=== PATIENT | male | born 1970 | race Caucasian/White ===

== ENCOUNTER 2018-10-03 11:33 | Emergency (ER) | payer OTHER ==
[2018-10-03] MEDS ORDERED: KETOROLAC 30 MG/ML 1 ML VIAL IVP STA (12:10)
--- NOTE | 2018-10-03 12:12 | ED ---
Abdominal Pain HPI - General Chief Complaint: Abdominal Pain Stated Complaint: TESTICULAR PAIN Time Seen by Provider: 10/03/18 11:54 Source: patient Mode of arrival: ambulatory Limitations: no limitations - History of Present Illness Initial Comments: 89 year old male presenting with right testicular pain that began on Friday after he was coughing. He states since then it has been constant, worsening and with bearing down, not alleviated by anything. He states today he began to have testicular swelling. He admits to hematuria as well. He denies any concern for STI. He admits to subjective fevers and chills which is attributed to an upper respiratory infection that he started taking Augmentin for. - Related Data Home Medications Medication Instructions Recorded Confirmed Amoxic-Pot Clav 875-125Mg 1 tab PO Q12HR 10/03/18 10/03/18 [Augmentin 875-125] Ibuprofen [Motrin Ib] 400 mg PO Q6H PRN 10/03/18 10/03/18 Previous Rx's Medication Instructions Recorded HYDROcodone/APAP 5-325MG [[place] 1 tab PO Q4HR PRN 3 Days #18 tab 10/03/18 5-325] Ibuprofen 600 mg PO Q8HR PRN #30 tablet 10/03/18 Sulfamethox-Tmp 800-160Mg [Bactrim 1 tab PO Q12HR 14 Days #28 tab 10/03/18 DS 800-160 mg] Allergies Allergy/AdvReac Type Severity Reaction Status Date / Time azithromycin [From Zithromax] Allergy Rash/Hives Verified 10/03/18 12:52 Review of Systems ROS Statement: Those systems with pertinent positive or pertinent negative responses have been documented in the HPI. Review of Systems Constitutional: Denies fever, chills Eyes: Denies change in vision, Denies pain Ears, nose, mouth, throat: Denies headaches, Denies sore throat Cardiovascular: Denies chest pain. Denies palpitations Respiratory: Denies shortness of breath, Denies cough Gastrointestinal: Denies abdominal pain. Denies nausea, vomiting, diarrhea. Genitourinary: Denies hematuria, Denies infections Musculoskeletal: Denies pain, Denies swelling Integumentary: Denies rash Neurological: Denies headache, focal weakness, focal numbness Psychiatric: Denies anxiety, Denies depression Hematologic/Lymphatic: Denies easy bleeding or bruising ROS Other: All systems not noted in ROS Statement are negative. Past Medical History Past Medical History: No Reported History History of Any Multi-Drug Resistant Organisms: None Reported Past Surgical History: Adenoidectomy, Hernia Repair, Tonsillectomy Past Psychological History: No Psychological Hx Reported Smoking Status: Current every day smoker Past Alcohol Use History: Occasional Past Drug Use History: Marijuana General Exam - General Exam Comments Initial Comments: General: Awake, alert, No acute Distress HENT: Normocephalic. Atraumatic Eyes: PERRL. EOMI. No scleral icterus. No injected conjunctiva Neck: Full ROM Chest/Lungs: Clear to auscultation bilaterally. No wheezing, rhonchi, or rales Cardiac: Regular rate, rhythm. No murmurs or rubs Abdomen/GI: Soft, nontender, nondistended. No rebound, guarding, or rigidity. Musculoskeletal: Full ROM : Right testicular swelling and erythema with tenderness to palpation. Able to test for inguinal hernia secondary to pain. Testicle no swelling, no erythema, no masses Skin: Warm, dry, intact Neurologic: A/Ox3, no weakness, no sensory deficit, no abnormal gait, no coordination deficit Limitations: no limitations Course Vital Signs 10/03/18 10/03/18 11:48 14:42 Temperature 98.4 F 97.8 F Pulse Rate 118 H 92 Respiratory 20 18 Rate Blood Pressure 136/86 125/87 O2 Sat by Pulse 96 98 Oximetry Medical Decision Making - Medical Decision Making 47 yoM presenting with testicular pain and swelling. On initial exam the patient is awake, alert, and in NAD. He is tachycardic but vital signs are otherwise stable. He has a red swollen right testicle that is tender. Laboratory workup revealed a marked leukocytosis but a negative lactate. UA showed WBC and RBCs. US showed probable bilateral epididymitis and a moderate right-sided hydrocele. Urine and blood cultures were sent as well as gonorrhea and chlamydia PCR's. He was given Rocephin in the department. Patient's HR improved after pain management. His CXR was negative for PNA. Patient was instructed to stop taking Augmentin as his URI symptoms were likely due to a virus. I spoke with Dr. Velez who states the patient can be discharge home on Levaquin or Bactrim and follow up in his office. While the patient has SIRS criteria at this time he is nontoxic appearing, able to tolerate PO, and his pain is under control. Patient was given Bactrim as he does not have insurance and Levaquin is expensive. He is safe for outpatient management. No further emergent workup indicated. The patient was given return to ED instructions. They were instructed to follow up with their primary care provider. Stable for discharge at this time. - Lab Data Result diagrams: 10/03/18 12:34 10/03/18 12:30 Lab Results 10/03/18 10/03/18 10/03/18 Range/Units 12:30 12:30 12:34 WBC 20.5 H (3.8-10.6) k/uL RBC 5.54 (4.30-5.90) m/uL Hgb 15.8 (13.0-17.5) gm/dL Hct 46.9 (39.0-53.0) % MCV 84.8 (80.0-100.0) fL MCH 28.4 (25.0-35.0) pg MCHC 33.6 (31.0-37.0) g/dL RDW 13.6 (11.5-15.5) % Plt Count 301 (150-450) k/uL Neutrophils % 78 % Lymphocytes % 14 % Monocytes % 5 % Eosinophils % 2 % Basophils % 0 % Neutrophils # 15.9 H (1.3-7.7) k/uL Lymphocytes # 2.8 (1.0-4.8) k/uL Monocytes # 1.1 H (0-1.0) k/uL Eosinophils # 0.4 (0-0.7) k/uL Basophils # 0.1 (0-0.2) k/uL Sodium 140 (137-145) mmol/L Potassium 4.7 (3.5-5.1) mmol/L Chloride 105 (98-107) mmol/L Carbon Dioxide 25 (22-30) mmol/L Anion Gap 10 mmol/L BUN 12 (9-20) mg/dL Creatinine 0.75 (0.66-1.25) mg/dL Est GFR (CKD-EPI)AfAm >90 (>60 ml/min/1.73 sqM) Est GFR (CKD-EPI)NonAf >90 (>60 ml/min/1.73 sqM) Glucose 88 (74-99) mg/dL Plasma Lactic Acid [place] (0.7-2.0) mmol/L Calcium 10.0 (8.4-10.2) mg/dL Urine Color Yellow Urine Appearance Clear (Clear) Urine pH 6.5 (5.0-8.0) Ur Specific [place] 1.023 (1.001-1.035) Urine Protein Trace H (Negative) Urine Glucose (UA) Negative (Negative) Urine Ketones Negative (Negative) Urine Blood Small H (Negative) Urine Nitrite Negative (Negative) Urine Bilirubin Negative (Negative) Urine Urobilinogen <2.0 (<2.0) mg/dL Ur Leukocyte Esterase Moderate H (Negative) Urine RBC 32 H (0-5) /hpf Urine WBC 43 H (0-5) /hpf Ur Squamous Epith Cells <1 (0-4) /hpf Urine Mucus Rare H (None) /hpf 10/03/18 Range/Units 13:02 WBC (3.8-10.6) k/uL RBC (4.30-5.90) m/uL Hgb (13.0-17.5) gm/dL Hct (39.0-53.0) % MCV (80.0-100.0) fL MCH (25.0-35.0) pg MCHC (31.0-37.0) g/dL RDW (11.5-15.5) % Plt Count (150-450) k/uL Neutrophils % % Lymphocytes % % Monocytes % % Eosinophils % % Basophils % % Neutrophils # (1.3-7.7) k/uL Lymphocytes # (1.0-4.8) k/uL Monocytes # (0-1.0) k/uL Eosinophils # (0-0.7) k/uL Basophils # (0-0.2) k/uL Sodium (137-145) mmol/L Potassium (3.5-5.1) mmol/L Chloride (98-107) mmol/L Carbon Dioxide (22-30) mmol/L Anion Gap mmol/L BUN (9-20) mg/dL Creatinine (0.66-1.25) mg/dL Est GFR (CKD-EPI)AfAm (>60 ml/min/1.73 sqM) Est GFR (CKD-EPI)NonAf (>60 ml/min/1.73 sqM) Glucose (74-99) mg/dL Plasma Lactic Acid [place] 1.0 (0.7-2.0) mmol/L Calcium (8.4-10.2) mg/dL Urine Color Urine Appearance (Clear) Urine pH (5.0-8.0) Ur Specific [place] (1.001-1.035) Urine Protein (Negative) Urine Glucose (UA) (Negative) Urine Ketones (Negative) Urine Blood (Negative) Urine Nitrite (Negative) Urine Bilirubin (Negative) Urine Urobilinogen (<2.0) mg/dL Ur Leukocyte Esterase (Negative) Urine RBC (0-5) /hpf Urine WBC (0-5) /hpf Ur Squamous Epith Cells (0-4) /hpf Urine Mucus (None) /hpf Disposition Clinical Impression: Acute epididymitis, Right hydrocele Disposition: HOME SELF-CARE Condition: Good Instructions: Epididymo-Orchitis (ED), Hydrocele (ED), Testicle Pain (ED) Additional Instructions: Take Motrin every 8 hours for pain. Wear formfitting briefs, ice testicles as needed, and follow up with the urologist in one week. Return to emergency department if you develop a fever, have pain that is not controlled with the medications, developed nausea vomiting. Prescriptions: HYDROcodone/APAP 5-325MG [[place] 5-325] 1 tab PO Q4HR PRN 3 Days #18 tab PRN Reason: Pain Ibuprofen 600 mg PO Q8HR PRN #30 tablet PRN Reason: Pain Control Sulfamethox-Tmp 800-160Mg [Bactrim DS 800-160 mg] 1 tab PO Q12HR 14 Days #28 tab Is patient prescribed a controlled substance at d/c from ED?: Yes When asked, does pt state using other controlled substances?: Yes If prescribed controlled substance>3 days was MAPS reviewed?: Yes If opioid is for acute pain is fill amount 7 days or less?: Yes If Rx opioid, was Start Talking consent form obtained?: Yes Referrals: None,Stated [Primary Care Provider] - 1-2 days Herman Velez MD [STAFF PHYSICIAN] - 1-2 days
[2018-10-03] MEDS ORDERED: HYDROcodone/APAP 5-325MG 1 EACH TAB PO STA (12:19)
[2018-10-03 12:48] LABS: Basophils # (A) 0.1 k/uL (0-0.2); Basophils % (A) 0 %; Eosinophils # (A) 0.4 k/uL (0-0.7); Eosinophils % (A) 2 %; HCT 46.9 % (39.0-53.0); HGB 15.8 gm/dL (13.0-17.5); Lymphocytes # (A) 2.8 k/uL (1.0-4.8); Lymphocytes % (A) 14 %; MCH 28.4 pg (25.0-35.0); MCHC 33.6 g/dL (31.0-37.0); MCV 84.8 fL (80.0-100.0); Mean Platelet Volume 6.8; Monocytes # (A) 1.1 k/uL (0-1.0); Monocytes % (A) 5 %; Neutrophils # (A) 15.9 k/uL (1.3-7.7); Neutrophils % (A) 78 %; Platelet Count 301 k/uL (150-450); RBC 5.54 m/uL (4.30-5.90); RDW 13.6 % (11.5-15.5); WBC 20.5 k/uL (3.8-10.6)
[2018-10-03 12:53] LABS: Appearance,Urine Clear (Clear); Bilirubin,Urine Negative (Negative); Blood,Urine Small (Negative); Color,Urine Yellow; Glucose,Urine (UA) Negative (Negative); Ketones,Urine Negative (Negative); Leukocyte Esterase,Urine Moderate (Negative); Mucus,Urine Rare /hpf; Nitrite,Urine Negative (Negative); PH, Urine 6.5 (5.0-8.0); Protein,Urine Trace (Negative); RBC,Urine 32 /hpf (0-5); Specific Gravity,Urine 1.023 (1.001-1.035); Squamous Epithelial Cell,Urine <1 /hpf (0-4); Urobilinogen,Urine <2.0 mg/dL (<2.0); WBC,Urine 43 /hpf (0-5)
[2018-10-03 12:58] LABS: Anion Gap 10 mmol/L; Blood Urea Nitrogen 12 mg/dL (9-20); Carbon Dioxide 25 mmol/L (22-30); Chloride 105 mmol/L (98-107); Glucose 88 mg/dL (74-99); Potassium 4.7 mmol/L (3.5-5.1); Sodium 140 mmol/L (137-145)
--- NOTE | 2018-10-03 13:48 | US ---
EXAMINATION TYPE: US scrotum with doppler. Grayscale and color Doppler Duplex imaging performed of asha clarke scrotum. DATE OF EXAM: 10/03/2018 COMPARISON: NONE CLINICAL HISTORY: Pain. EXAM MEASUREMENTS: TESTICLES: Right Testicle: 4.3 x 2.3 x 3.0 cm Left Testicle: 4.4 x 2.9 x 3.1 cm EPIDIDYMIS HEAD: Right Epididymis: 0.7 cm Left Epididymis: 1.0 cm Doppler performed to assess for testicular vascularity; good bilateral color flow and waveforms are s een. There is no evidence of testicular torsion. Presence of hydroceles: Right: 3.7 x 0.4 x 2.0 Left 2.6 x 1.1 x 1.8cm Presence of varicoceles: no Increased vascular flow to right epididymis, possible left epididymitis. Both testicles are intrinsically normal. Both epididymides are hypervascular likely secondary to epid idymitis. There is a moderate right-sided hydrocele. IMPRESSION: 1. NORMAL INTRINSIC TESTICLES. 2. PROBABLE BILATERAL EPIDIDYMITIS, GREATER ON THE RIGHT THAN THE LEFT. 3. RIGHT-SIDED HYDROCELE.
--- NOTE | 2018-10-03 14:03 | XR ---
EXAMINATION TYPE: XR chest 2V DATE OF EXAM ORDERED: 10/03/2018 HISTORY: Pain. REFERENCE: None. FINDINGS: The lungs are clear. Pleural spaces are clear. Heart size is normal. IMPRESSION: NORMAL CHEST.
[2018-10-03] MEDS ORDERED: cefTRIAXone 2,000 MG in SODIUM CHLORIDE 0.9% 100 ML IVPB STA (14:15)
[2018-10-03 14:43] VITALS: BP 125/87; PULSE 92; RESP 18; TEMP 97.8
[2018-10-03] MEDS ORDERED: SULFAMETH-TMP DS STARTER PACK 2 TAB BTL PO STA (15:04)
[2018-10-05 13:36] LABS: C. trachomatis,PCR Negative (Neg,Equiv); Chlamydia trachomatis Source Urine
[2018-10-05 13:38] LABS: N. gonorrhoeae,PCR Negative (Neg,Equiv); Neisseria Source Urine
== END 2018-10-03 15:46 | disposition home or self-care (01) ==
LOC: EC 11:33
DX: N45.1 Epididymitis (principal); N43.3 Hydrocele, unspecified; F17.200 Nicotine dependence, unspecified, uncomplicated; Z88.1 Allergy status to other antibiotic agents
CPT/HCPCS: 36415; 80048; 83605; 85025; 81001; 87040; 87491; 87591; 87086; 71046; 93975; 76870; 99284; 96365; 96375; J0696; J1885

== ENCOUNTER → 2020-10-05 | Outpatient (CLI) | payer BC ==
[2020-10-05 21:19] LABS: Chol/HDL Ratio 5.81; LDL Cholesterol,Calculated 179.6 mg/dL (0.0-131.0); VLDL Calculation 27.4 mg/dL (5.00-40.00)
== END | disposition home or self-care (01) ==
LOC: LABWHC1 14:37
PROVIDERS: ATTEND Family Medicine
DX: I10 Essential (primary) hypertension (principal); Z79.899 Other long term (current) drug therapy
CPT/HCPCS: 36415; 80061; 83655

== ENCOUNTER → 2021-12-21 | Outpatient (CLI) | payer BC ==
--- NOTE | 2021-12-23 20:40 | CTL ---
EXAMINATION TYPE: CT Low Dose Lung DATE OF EXAM ORDERED: 12/21/2021 HISTORY: 51-year-old male Personal History of tobacco use.. Lung cancer screening CT DLP: [address] CTDI: 2.1 mGy Automated exposure control for dose reduction was used. SCREENING VISIT: Baseline screening COMPARISON: Radiograph 10/03/2016 TECHNIQUE: Low dose computed tomography scan was performed through the chest with coronal and sagitta l reconstructions. CT DIAGNOSTIC QUALITY: Satisfactory FINDINGS: Heart normal size without pericardial. Aorta normal caliber with conventional. Branching anatomy. A few scattered small mediastinal lymph nodes are present measuring up to 7 mm. No thoracic lymphaden opathy by CT size criteria. Mild centrilobular emphysema. Mild to moderate diffuse bronchial wall thickening. No consolidation or pleural effusion. 3 mm medial right upper lobe pulmonary nodule, axial image 49. Benign 4 mm calcified granuloma left lower lobe, 182. No suspicious greater than 4 mm pulmonary nodule is seen in Visualized upper abdomen shows a 8 mm hypodensity left hepatic dome too small fracture CT characteriz ation, probably a small cyst. Bones: Scattered small endplate Schmorl's nodes mid and lower thoracic spine. IMPRESSION: 1. LungRADS 2, Benign. 3 mm pulmonary nodule on baseline screening. A benign 4 mm calcified granuloma also present. 2. COPD with mild emphysema. Either a prominent component of chronic bronchitis versus superimposed a cute bronchitis. Clinically correlate. Recommend smoking cessation. CT LUNG RAD AND CT CHEST RECOMMENDATION: Lung-Rad 2 Benign Appearance or Behavior: Continue annual sc reening with LDCT in 12 months. S Modifier (other clinically significant findings): None
== END | disposition home or self-care (01) ==
LOC: RADCTMAIN 14:45
PROVIDERS: ATTEND Family Medicine
DX: Z12.2 Encounter for screening for malignant neoplasm of respiratory organs (principal); J84.10 Pulmonary fibrosis, unspecified; R91.1 Solitary pulmonary nodule; J43.2 Centrilobular emphysema; Z87.891 Personal history of nicotine dependence
CPT/HCPCS: 71271

== ENCOUNTER → 2024-01-05 | Outpatient (CLI) | payer BC ==
--- NOTE | 2024-01-08 20:24 | CTL ---
EXAMINATION TYPE: CT Low Dose Lung DATE OF EXAM ORDERED: 01/05/2024 HISTORY: Nicotine dependence. Lung cancer screening CT DLP: 99.[address] CTDI: 2.8 mGy Automated exposure control for dose reduction was used. SCREENING VISIT: Subsequent COMPARISON: 12/21/2021 TECHNIQUE: Low dose computed tomography scan was performed through the chest at 1 mm thick sections a nd reconstructed images in the coronal plane at [address] DIAGNOSTIC QUALITY: Satisfactory FINDINGS: LUNG NODULES: Present, detailed below: 1. There is a small peripheral calcification posterior lateral left lower lung field measuring 0.5 cm . This was present previously and stable. 2. Previous punctate density posterior lateral right apex measures 0.4 cm within measurement error of the prior examination appears stable. LUNGS: COPD: Severity: Mild Fibrosis: Severity: None Lymph nodes: None Other findings: None RIGHT PLEURAL SPACE: Effusion: None Calcification: None Thickening: None Pneumothorax: None LEFT PLEURAL SPACE: Effusion: None Calcification: None Thickening: None Pneumothorax: None HEART: Heart Size: Normal Coronary calcification: None Pericardial effusion: None OTHER FINDINGS: Upper abdomen: Normal Bony thorax: Normal Supraclavicular region: Normal Other: Ascending thoracic aorta at the level the main pulmonary artery measures 3.3 cm. The main pul monary artery at the bifurcation measures 2.4 cm. IMPRESSION: 1. No suspicious changes to suggest primary or metastatic neoplasm. 2. Stable tiny nodules discussed above FOLLOW UP CT CHEST RECOMMENDATION: Follow-up low-dose CT chest one year CT LUNG RAD: Lung-Rad 2 Benign Appearance or Behavior
== END | disposition home or self-care (01) ==
LOC: RADCTMAIN 15:02
PROVIDERS: ATTEND Family Medicine
DX: Z12.2 Encounter for screening for malignant neoplasm of respiratory organs (principal); R91.8 Other nonspecific abnormal finding of lung field; F17.210 Nicotine dependence, cigarettes, uncomplicated
CPT/HCPCS: 71271